=== PATIENT | male | born 1945 | race Caucasian/White ===

== ENCOUNTER 2017-06-18 14:24 | Emergency (ER) | payer OTHER ==
[~2017-06-18] VITALS: Ht 177.8 cm; Wt 93.0 kg
[~2017-06-18 14:24] MED LIST: ASPIR 8181 MG PO; LEVSIN0.125 MG SL; LISINOPRIL40 MG PO; NAPROSYN500 MG PO; NORCO 5-325 TA1 EACH PO; NORVASC 5 MG TAB5 MG PO; OMEPRAZOLE20 M2 PO; PAXIL10 MG; PERCOCET 5-3251 EACH PO; PHENERGAN 25 MG25 M1 PO; TAMSULOSIN HCL PO; TAMSULOSIN HCL0.4 M1; TORADOL 10 MG T10 MG PO; ZOFRAN ODT4 MG PO
[2017-06-18 15:25] LABS: ABSOLUTE BASOPHILS 0.1 thou/uL (0.0-0.2); ABSOLUTE EOSINOPHILS 0.2 thou/uL (0.0-0.7); ABSOLUTE LYMPHOCYTES 1.5 thou/uL (0.8-5.3); ABSOLUTE MONOCYTES 0.5 thou/uL (0.0-1.2); ABSOLUTE NEUTROPHILS 6.1 thou/uL (1.6-8.1); BASOPHILS 0.8 %; EOSINOPHILS 2.9 %; HEMATOCRIT 42.7 % (42.0-52.0); HEMOGLOBIN 14.6 gm/dL (14.0-18.0); LYMPHOCYTES 17.6 %; MCH 30.2 pg (26.0-34.0); MCHC 34.3 g/dL (28.0-37.0); MCV 88.2 fL (80.0-100.0); MONOCYTES 6.1 %; MPV 6.5 fl. (7.2-11.1); NUCLEATED RBCS 0 /100WBC; PLATELET COUNT* 218 thou/uL (150-400); POLYS 72.6 %; RBC 4.84 mil/uL (4.50-6.00); RDW-CV 13.3 % (10.5-14.5); WBC 8.4 thou/uL (4.0-11.0)
[2017-06-18 15:31] LABS: CALCIUM 8.8 mg/dL (8.5-10.1); CREATININE 1.4 mg/dL (0.6-1.3); POTASSIUM 3.6 mmol/L (3.5-5.1)
[2017-06-18 15:35] LABS: ALBUMIN 3.8 g/dL (3.4-5.0); TOTAL BILIRUBIN 0.5 mg/dL (<0.1-1.0); TOTAL PROTEIN 7.1 g/dL (6.4-8.2)
[2017-06-18 17:26] LABS: URINE BILIRUBIN NEGATIVE (Negative); URINE BLOOD 2+ (Negative); URINE CLARITY CLEAR; URINE COLOR DARK YELLOW; URINE GLUCOSE-RANDOM NEGATIVE (Negative); URINE KETONES NEGATIVE (Negative); URINE LEUKOCYTES-REFLEX NEGATIVE (Negative); URINE NITRITE-REFLEX NEGATIVE (Negative); URINE PROTEIN NEGATIVE (Negative); URINE SPECIFIC GRAVITY >= 1.030 (1.005-1.030); URINE UROBILINOGEN 0.2 E.U./dl (0.2-1.0)
[2017-06-18 17:45] LABS: HYALINE CASTS 0-3 Few /LPF (None Seen); MUCUS >6 Heavy strn/LPF (None Seen); SQUAMOUS 0-3 Few /LPF (0-3)
[2017-06-18 17:47] LABS: URINE WBC-REFLEX 6-15 Few /HPF (0-5)
[2017-06-18 17:50] LABS: AMORPHOUS URATES Few /LPF (None Seen); FINE GRANULAR CASTS 0-3 Few /LPF (None Seen)
[2017-06-18] MEDS ORDERED: KEFLEX500 M1 PO (18:56)
[2017-06-18 19:07] VITALS: BP 134/79
== END 2017-06-18 19:07 | disposition home or self-care (01) ==
LOC: M.ERS 14:24
PROVIDERS: Nurse Practitioner Family
DX: N20.0 Calculus of kidney (principal); I10 Essential (primary) hypertension; Z87.442 Personal history of urinary calculi; Z98.890 Other specified postprocedural states; Z88.0 Allergy status to penicillin; Z88.8 Allergy status to other drugs, medicaments and biological substances

== ENCOUNTER 2017-06-24 10:06 | Emergency (ER) | payer OTHER ==
[~2017-06-24] VITALS: Ht 177.8 cm; Wt 93.0 kg
[~2017-06-24 10:06] MED LIST changes: +KEFLEX500 M1 PO
[2017-06-24 12:50] VITALS: BP 117/73
== END 2017-06-24 12:51 | disposition home or self-care (01) ==
LOC: M.ERS 10:06
DX: M25.571 Pain in right ankle and joints of right foot (principal); I10 Essential (primary) hypertension; Z87.442 Personal history of urinary calculi; Z98.890 Other specified postprocedural states; Z88.0 Allergy status to penicillin; Z88.2 Allergy status to sulfonamides; Z88.8 Allergy status to other drugs, medicaments and biological substances

== ENCOUNTER → 2018-04-12 | Outpatient (CLI) | payer OTHER | LOC: M.CT 09:30 | DX: K57.30 Diverticulosis of large intestine without perforation or abscess without bleeding (principal); N28.1 Cyst of kidney, acquired; N40.0 Benign prostatic hyperplasia without lower urinary tract symptoms; N20.0 Calculus of kidney; I25.10 Atherosclerotic heart disease of native coronary artery without angina pectoris; M47.816 Spondylosis without myelopathy or radiculopathy, lumbar region; Z87.442 Personal history of urinary calculi; Z90.49 Acquired absence of other specified parts of digestive tract ==

== ENCOUNTER → 2018-05-18 | Outpatient (CLI) | payer OTHER | LOC: M.RAD 14:58 | DX: K59.00 Constipation, unspecified (principal); R10.13 Epigastric pain ==

== ENCOUNTER → 2018-07-18 | Outpatient (CLI) | payer OTHER | LOC: M.ULTRA 13:11 | DX: N28.1 Cyst of kidney, acquired (principal); N26.1 Atrophy of kidney (terminal); N20.0 Calculus of kidney; N40.0 Benign prostatic hyperplasia without lower urinary tract symptoms ==

== ENCOUNTER 2020-02-24 00:12 | Inpatient (IN) | payer OTHER ==
[~2020-02-24] VITALS: Ht 177.8 cm; Wt 98.4 kg
[2020-02-24 00:26] VITALS: BP 116/74
[2020-02-24 00:46] LABS: ABSOLUTE LYMPHOCYTES 0.9 thou/uL (0.8-5.3); ABSOLUTE MONOCYTES 0.5 thou/uL (0.0-1.2); ABSOLUTE NEUTROPHILS 4.3 thou/uL (1.6-8.1); BASOPHILS 0.4 %; EOSINOPHILS 0.1 %; HEMATOCRIT 45.8 % (42.0-52.0); HEMOGLOBIN 16.4 gm/dL (14.0-18.0); LYMPHOCYTES 15.1 %; MCHC 35.8 g/dL (28.0-37.0); MCV 86.4 fL (80.0-100.0); MONOCYTES 8.6 %; MPV 6.8 fl. (7.2-11.1); NUCLEATED RBCS 0 /100WBC; PLATELET COUNT* 185 thou/uL (150-400); POLYS 75.8 %; RBC 5.31 mil/uL (4.50-6.00); RDW-CV 13.4 % (10.5-14.5); WBC 5.7 thou/uL (4.0-11.0)
[2020-02-24 00:57] LABS: CALCIUM 8.1 mg/dL (8.5-10.1); CREATININE 1.7 mg/dL (0.6-1.3); POTASSIUM 3.5 mmol/L (3.5-5.1)
[2020-02-24 01:00] LABS: PROTIME 10.1 Seconds (9.20-11.50)
[2020-02-24 01:07] LABS: ALBUMIN 3.9 g/dL (3.4-5.0); MAGNESIUM 1.8 mg/dL (1.8-2.4); TOTAL BILIRUBIN 0.9 mg/dL (<0.1-1.0); TOTAL PROTEIN 7.9 g/dL (6.4-8.2)
[2020-02-24 02:29] LABS: URINE BILIRUBIN NEGATIVE (Negative); URINE BLOOD NEGATIVE (Negative); URINE CLARITY CLEAR; URINE COLOR YELLOW; URINE GLUCOSE-RANDOM NEGATIVE (Negative); URINE KETONES NEGATIVE (Negative); URINE LEUKOCYTES-REFLEX NEGATIVE (Negative); URINE NITRITE-REFLEX NEGATIVE (Negative); URINE PROTEIN TRACE (Negative); URINE SPECIFIC GRAVITY 1.025 (1.005-1.030); URINE UROBILINOGEN 0.2 E.U./dl (0.2-1.0)
[2020-02-24 02:35] VITALS: BP 155/81
[2020-02-24 03:05] VITALS: BP 148/84
[2020-02-24 08:00] VITALS: BP 138/83
[2020-02-24 15:25] VITALS: BP 151/93
--- NOTE | 2020-02-24 17:43 | EKG ---
[place] [address] ELECTROCARDIOGRAM REPORT Name: MARIA DEL CARMEN DUNLAP Room: [address] ADM IN M.R.#: [id number] Admission: 02/24/20 Attend Phys: Renate Sahu Discharge: Date of : 45 Date of Service: 02/24/20 0028 Report #: [id number] THIS REPORT FOR: //name// [facility] ED Test Date: 2020-02-24 Test Time: 00:28:13 Pat Name: MARIA DEL CARMEN DUNLAP Department: Room: [facility] Gender: M [employer]: [place] : 1945 Requested By: Deana Alfaro Order Number: [id number] MD: Michael Kelly Measurements Intervals [place] Rate: 64 P: 54 DE: 171 QRS: -9 QRSD: 81 T: 20 QT: 392 QTc: 405 Interpretive Statements Sinus rhythm Low voltage, precordial leads Abnormal R-wave progression, early transition Compared to ECG 07/18/2016 09:02:29 Atrial premature complex(es) no longer present T-wave abnormality no longer present Electronically Signed On 02-24-2020 17:42:51 CDT by Michael Kelly [email or web address] <ELECTRONICALLY SIGNED> By: Michael Kelly MD, FACC 02/24/20 1742 0028 0028 Michael Kelly MD, FAC /EPI
[2020-02-24 18:28] LABS: ABSOLUTE LYMPHOCYTES 0.6 thou/uL (0.8-5.3); ABSOLUTE MONOCYTES 0.2 thou/uL (0.0-1.2); ABSOLUTE NEUTROPHILS 1.9 thou/uL (1.6-8.1); BASOPHILS 1.1 %; HEMATOCRIT 39.9 % (42.0-52.0); HEMOGLOBIN 14.5 gm/dL (14.0-18.0); MCH 31.2 pg (26.0-34.0); MCHC 36.3 g/dL (28.0-37.0); MCV 86.1 fL (80.0-100.0); MPV 6.6 fl. (7.2-11.1); NUCLEATED RBCS 0 /100WBC; PLATELET COUNT* 174 thou/uL (150-400); POLYS 70.9 %; RBC 4.64 mil/uL (4.50-6.00); RDW-CV 13.4 % (10.5-14.5); WBC 2.7 thou/uL (4.0-11.0)
[2020-02-24 18:53] LABS: APTT 25.4 Seconds (25.0-31.3); INR 0.9; PROTIME 9.5 Seconds (9.20-11.50)
[2020-02-24 19:03] LABS: ALBUMIN 3.2 g/dL (3.4-5.0); ANION GAP 10 mmol/L (7-16); BUN 18 mg/dL (7-18); CALCIUM 7.5 mg/dL (8.5-10.1); POTASSIUM 4.1 mmol/L (3.5-5.1); SGPT 94 U/L (30-65); TROPONIN-I LEVEL <0.06 ng/mL (<0.06)
[2020-02-24 19:04] LABS: ALKALINE PHOSPHATASE 102 U/L (46-116); CHLORIDE 103 mmol/L (98-107); CO2 21 mmol/L (21-32); CREATININE 1.3 mg/dL (0.6-1.3); GLUCOSE 186 mg/dL (70-99); NT-PRO BRAIN NAT PEPTIDE 157 pg/mL (<300); SGOT 51 U/L (15-37); SODIUM 134 mmol/L (136-145); TOTAL BILIRUBIN 0.6 mg/dL (<0.1-1.0); TOTAL PROTEIN 6.7 g/dL (6.4-8.2)
[2020-02-24 20:00] VITALS: BP 156/60
[2020-02-25] VITALS: BP 162/85
[2020-02-25 04:00] VITALS: BP 152/78
[2020-02-25 05:00] LABS: HEMATOCRIT 39.9 % (42.0-52.0); HEMOGLOBIN 14.5 gm/dL (14.0-18.0); MCH 31.3 pg (26.0-34.0); MCHC 36.4 g/dL (28.0-37.0); MCV 85.9 fL (80.0-100.0); MPV 7.1 fl. (7.2-11.1); RBC 4.64 mil/uL (4.50-6.00); RDW-CV 13.5 % (10.5-14.5); WBC 6.9 thou/uL (4.0-11.0)
[2020-02-25 05:17] LABS: ALBUMIN 3.1 g/dL (3.4-5.0); CALCIUM 7.6 mg/dL (8.5-10.1); CREATININE 1.3 mg/dL (0.6-1.3); MAGNESIUM 1.8 mg/dL (1.8-2.4); POTASSIUM 4.2 mmol/L (3.5-5.1); TOTAL BILIRUBIN 0.5 mg/dL (<0.1-1.0); TOTAL PROTEIN 6.6 g/dL (6.4-8.2)
[2020-02-25 08:00] VITALS: BP 130/69
[2020-02-25 10:45] LABS: INFLUENZA A ANTIGEN Negative (Negative); INFLUENZA B ANTIGEN Negative (Negative)
[2020-02-25 17:30] VITALS: BP 149/86
[2020-02-25 20:00] VITALS: BP 145/81
[2020-02-25 23:53] VITALS: BP 144/84
[2020-02-26 04:00] VITALS: BP 145/77
[2020-02-26 04:34] LABS: HEMATOCRIT 39.7 % (42.0-52.0); HEMOGLOBIN 14.3 gm/dL (14.0-18.0); MCH 31.2 pg (26.0-34.0); MCV 86.8 fL (80.0-100.0); MPV 7.1 fl. (7.2-11.1); RBC 4.57 mil/uL (4.50-6.00); RDW-CV 13.4 % (10.5-14.5)
[2020-02-26 05:20] LABS: ALBUMIN 3.1 g/dL (3.4-5.0); CALCIUM 7.8 mg/dL (8.5-10.1); CREATININE 1.4 mg/dL (0.6-1.3); MAGNESIUM 1.7 mg/dL (1.8-2.4); POTASSIUM 4.2 mmol/L (3.5-5.1); TOTAL BILIRUBIN 0.5 mg/dL (<0.1-1.0); TOTAL PROTEIN 6.7 g/dL (6.4-8.2)
[2020-02-26 08:01] VITALS: BP 151/79
[2020-02-26] MEDS ORDERED: DECADRON4 MG PO (09:18)
[2020-02-26 11:57] VITALS: BP 151/79
[2020-02-26 12:03] VITALS: BP 146/71
== END 2020-02-26 13:50 | disposition home or self-care (01) | DRG 177 ==
LOC: M.ERS 00:12 → M.TBA-ER 01:54 → M.2W 01:54
PROVIDERS: Emergency Medicine; Internal Medicine; ADMIT Internal Medicine; ATTEND Internal Medicine
DX: U07.1 COVID-19 (principal); J96.01 Acute respiratory failure with hypoxia; J12.89 Other viral pneumonia; Z88.0 Allergy status to penicillin; Z88.2 Allergy status to sulfonamides; Z88.8 Allergy status to other drugs, medicaments and biological substances; Z87.442 Personal history of urinary calculi; Z88.5 Allergy status to narcotic agent; Z90.49 Acquired absence of other specified parts of digestive tract; I10 Essential (primary) hypertension